=== PATIENT | female | born 1945 | race Two or more races ===

== ENCOUNTER 2018-03-05 09:39 | Inpatient (IN) | payer MEDICARE, MEDICAID ==
[~2018-03-05] VITALS: Ht 157.5 cm; Wt 81.7 kg
[~2018-03-05 09:39] MED LIST: ACET-53 PO; ALBU8.5H8 INH; BENA10TA9 PO; BENZ1TAB7 PO; DOCU-270 PO; GEMF600T PO; GUAI-671 PO; HYDR-3974 PO; LEVO112T5 PO; LORA10TA7 PO; METF500T6 PO; METO50TA16 PO; MULT-39 PO; ONDA4TAB11 PO
[2018-03-05] MEDS ORDERED: ACETAMINOPHEN 325 MG TABLET PO PRN (11:30)
[2018-03-05] MEDS ORDERED: MAGNESIUM HYDROXIDE 30 ML UDC PO PRN (11:30)
[2018-03-05] MEDS ORDERED: LORAZEPAM 0.5 MG TABLET PO PRN (11:30)
[2018-03-05] MEDS ORDERED: MAG HYDROX/AL HYDROX/SIMETH 30 ML UDC PO PRN (11:30)
[2018-03-05 11:35] VITALS: BP 138/90
--- NOTE | 2018-03-05 11:35 | NUR ---
ADMISSION NOTES PATIENT DIRECT ADMIT FROM URGENT CARE PSYCH EVALUATION. PATIENT DX OF SI, PLAN TO SELF HARM. PATIENT HAS PRIOR DX OF SCHIZOPHRENIA, SCHIZOAFFECTIVE D/O WITH PRIOR MEDICATION. PATIENT A/O X3, VERBALLY ABUSIVE, UNKEMPT, YELLING, IRRITABLE. ON FACE TO FACE ASSESSMENT PATIENT REFUSED SI/HI AT THIS TIME OF ADMISSION. V/S TAKEN BP-138/90, P-79, R-20, O2- 99 ROOM AIR, T-98.9. SKIN ASSESSMENT DONE, PICTURE TAKEN. PATIENT AMBULATORY, SELF CARE, USING BATHROOM. NEEDS ATTENDED AND ANTICIPATED. DR RIVERA, AND ANDRW DNP AWARE OF NEW PATIENT AND MEDICATION. CONTINUED MONITORING.
[2018-03-05] MEDS ORDERED: ESCI10TA PO (12:13)
[2018-03-05] MEDS ORDERED: LEVO75TA7 PO (12:13)
[2018-03-05] MEDS ORDERED: QUET300T2 PO (12:13)
[2018-03-05] MEDS ORDERED: ATOR40TA PO (12:13)
[2018-03-05] MEDS ORDERED: PANT40TA2 PO (12:13)
[2018-03-05] MEDS ORDERED: LABE200T5 PO (12:13)
[2018-03-05] MEDS ORDERED: GLIP5TAB13 PO (12:13)
[2018-03-05] MEDS: DIVALPROEX SODIUM 250 MG TABLET.DR PO SCH ×2 (13:48→22:39)
[2018-03-05] MEDS: OLANZAPINE 2.5 MG TABLET PO SCH ×2 (13:48→17:04)
--- NOTE | 2018-03-05 13:48 | NUR ---
RN NOTES ADMINISTERED ATIVAN 0.5 MG PO PRN FOR ANXIETY, YELLING, IRRITABLE. V/S TAKEN BP- 138/90, P-80. CONTINUED MONITORING. ALSO ADMINISTERED SCHEDULED MEDICATION.
[2018-03-05 16:00] VITALS: BP 152/81
[2018-03-05] MEDS ORDERED: IPRATROPIUM NEB FS 0.5 MG/2.5 ML AMPUL.NEB NEB PRN (19:00)
[2018-03-05] MEDS ORDERED: DEXTROSE 50%-WATER 50 ML DISP.SYRIN IV PRN (19:00)
[2018-03-05] MEDS ORDERED: ONDANSETRON 4 MG TAB.RAPDIS PO PRN (19:00)
[2018-03-05] MEDS ORDERED: LORATADINE 10 MG TABLET PO PRN (19:00)
[2018-03-05 19:30] VITALS: BP 153/91
[2018-03-05] MEDS: ALBUTEROL FS 2.5 MG/3 ML VIAL.NEB NEB PRN (22:21)
[2018-03-05] MEDS: BLOOD SUGAR DIAGNOSTIC 1 EACH STRIP IN SCH (22:40)
[2018-03-05] MEDS: QUETIAPINE FUMARATE 100 MG TABLET PO SCH (22:40)
[2018-03-05] MEDS: TEMAZEPAM 7.5 MG CAPSULE PO PRN (22:40)
[2018-03-05] MEDS: LABETALOL HCL (100MG) 100 MG TABLET PO SCH (22:40)
[2018-03-05] MEDS: INSULIN GLARGINE, 100 UNIT/ML CARTRIDGE SQ SCH (22:41)
[2018-03-05] MEDS: INSULIN REGULAR, HUMAN 100 UNIT/ML 3 ML VIAL SQ PRN (22:42)
[2018-03-06] MEDS: BLOOD SUGAR DIAGNOSTIC 1 EACH STRIP IN SCH ×4 (07:48→22:01)
[2018-03-06 08:00] VITALS: BP 143/99
[2018-03-06 08:02] LABS: CHOLESTEROL 253 mg/dL (<200); HDL CHOLESTEROL 37 mg/dL (40-60); LDL 145 mg/dL (0-99); TRIGLYCERIDES 385 mg/dL (30-150)
[2018-03-06 08:05] LABS: ALANINE AMINOTRANSFERASE 29 U/L (12-78); ALKALINE PHOSPHATASE 116 U/L (46-116); ASPARTATE AMINOTRANSFERASE 18 U/L (15-37); BILIRUBIN,TOTAL 0.2 mg/dL (0.2-1.0); CARBON DIOXIDE 24 mmol/L (21-32); CHLORIDE 103 mmol/L (98-107); CREATININE 1.1 mg/dL (0.6-1.3); GLUCOSE 181 mg/dL (74-106); POTASSIUM 4.1 mmol/L (3.5-5.1); SODIUM SERUM 138 mmol/L (136-145); TOTAL PROTEIN, SERUM 6.6 g/dL (6.4-8.2); UREA NITROGEN, BLOOD 26 mg/dL (7-18)
[2018-03-06] MEDS: INSULIN REGULAR, HUMAN 100 UNIT/ML 3 ML VIAL SQ PRN ×3 (08:44→22:03)
[2018-03-06] MEDS: OLANZAPINE 2.5 MG TABLET PO SCH ×3 (08:47→16:27)
[2018-03-06] MEDS: DIVALPROEX SODIUM 250 MG TABLET.DR PO SCH ×2 (08:47→21:53)
[2018-03-06] MEDS: MULTIVITAMINS,THERAGRAN 1 UDTAB TABLET PO SCH (08:47)
[2018-03-06] MEDS: LEVOTHYROXINE SODIUM 75 MCG TABLET PO SCH (08:47)
[2018-03-06] MEDS: ATORVASTATIN 40 MG TABLET PO SCH (08:47)
[2018-03-06] MEDS: PANTOPRAZOLE 40 MG TABLET.DR PO SCH (08:47)
[2018-03-06] MEDS: NICOTINE PATCH (14MG) 14 MG PATCH.TD24 TD SCH (08:49)
[2018-03-06] MEDS: LABETALOL HCL (100MG) 100 MG TABLET PO SCH ×2 (08:49→21:54)
--- NOTE | 2018-03-06 17:28 | NUR ---
ACCUCHECK 131. PATIENT REFUSED INSULIN. OFFERED 3X.
[2018-03-06 19:30] VITALS: BP 152/73
[2018-03-06] MEDS: TEMAZEPAM 7.5 MG CAPSULE PO PRN (21:54)
[2018-03-06] MEDS: QUETIAPINE FUMARATE 100 MG TABLET PO SCH (21:54)
[2018-03-06] MEDS: INSULIN GLARGINE, 100 UNIT/ML CARTRIDGE SQ SCH (22:02)
[2018-03-07 08:00] VITALS: BP 117/76
[2018-03-07] MEDS: LEVOTHYROXINE SODIUM 75 MCG TABLET PO SCH (08:00)
[2018-03-07] MEDS: NICOTINE PATCH (14MG) 14 MG PATCH.TD24 TD SCH (08:00)
[2018-03-07] MEDS: DIVALPROEX SODIUM 250 MG TABLET.DR PO SCH ×2 (08:00→21:08)
[2018-03-07] MEDS: ATORVASTATIN 40 MG TABLET PO SCH (08:00)
[2018-03-07] MEDS: PANTOPRAZOLE 40 MG TABLET.DR PO SCH (08:00)
[2018-03-07] MEDS: MULTIVITAMINS,THERAGRAN 1 UDTAB TABLET PO SCH (08:00)
[2018-03-07] MEDS: OLANZAPINE 2.5 MG TABLET PO SCH ×3 (08:00→16:09)
[2018-03-07] MEDS: LABETALOL HCL (100MG) 100 MG TABLET PO SCH ×2 (08:01→21:08)
[2018-03-07] MEDS: BLOOD SUGAR DIAGNOSTIC 1 EACH STRIP IN SCH ×5 (08:09→22:34)
[2018-03-07] MEDS: INSULIN REGULAR, HUMAN 100 UNIT/ML 3 ML VIAL SQ PRN ×4 (08:13→22:36)
[2018-03-07 16:10] VITALS: BP 179/94
[2018-03-07 18:05] VITALS: BP 138/86
[2018-03-07 19:48] VITALS: BP 139/62
[2018-03-07] MEDS: ALBUTEROL FS 2.5 MG/3 ML VIAL.NEB NEB PRN (20:31)
[2018-03-07] MEDS: DIVALPROEX SODIUM 500 MG TABLET.DR PO SCH (21:08)
--- NOTE | 2018-03-07 21:15 | NUR ---
GPS-RN PATIENT REFUSED SKIN BODY ASSESSMENT SHE STATED, I'M DONE WITH IT WHEN I CAME. EXPLAINED TO PATIENT THAT WE DO IT WEEKLY. BUT PATIENT STRONGLY REFUSED.
[2018-03-07] MEDS: TEMAZEPAM 7.5 MG CAPSULE PO PRN (21:49)
--- NOTE | 2018-03-07 21:49 | NUR ---
GPS-RN PATIENT C/O UNABLE TO STAY ASLEEP. VSS. ADMINISTERED RESTORIL 7.5MG PO ORDERED PER PT'S REQUEST. WILL CONTINUE TO MONITOR.
[2018-03-07] MEDS: INSULIN GLARGINE, 100 UNIT/ML CARTRIDGE SQ SCH ×2 (21:52→22:38)
--- NOTE | 2018-03-07 21:52 | NUR ---
GPS-RN PATIENT REFUSED ACCU CHECK SCHEDULED, OFFERED X3, PATIENT STILL REFUSED. WHILE EXPLAINING TO PT. THE RISKS AND BENEFITS PATIENT IS VERBALLY ABUSIVE, USING PROFANITY LANGUAGES. PATIENT NEEDS CONSTANT REDIRECTION. WILL CONTINUE TO MONITOR Q15MIN ROUNDS FOR SAFETY AND BEHAVIOR.
--- NOTE | 2018-03-07 22:34 | NUR ---
GPS-RN PATIENT AGREED TO HAVE HER BLOOD SUGAR CHECK.
[2018-03-08 08:00] VITALS: BP 152/77
[2018-03-08] MEDS: BLOOD SUGAR DIAGNOSTIC 1 EACH STRIP IN SCH ×4 (08:07→21:44)
[2018-03-08] MEDS: ATORVASTATIN 40 MG TABLET PO SCH (08:08)
[2018-03-08] MEDS: MULTIVITAMINS,THERAGRAN 1 UDTAB TABLET PO SCH (08:08)
[2018-03-08] MEDS: OLANZAPINE 2.5 MG TABLET PO SCH ×3 (08:08→16:21)
[2018-03-08] MEDS: PANTOPRAZOLE 40 MG TABLET.DR PO SCH (08:09)
[2018-03-08] MEDS: DIVALPROEX SODIUM 250 MG TABLET.DR PO SCH ×2 (08:09→21:50)
[2018-03-08] MEDS: NICOTINE PATCH (14MG) 14 MG PATCH.TD24 TD SCH (08:09)
[2018-03-08] MEDS: DIVALPROEX SODIUM 500 MG TABLET.DR PO SCH ×2 (08:09→21:50)
--- NOTE | 2018-03-08 08:39 | NUR ---
WOUND CARE CONSULT WOUND CARE RECEIVED CONSULT FOR RASHES. WOUND CARE WILL DEFER TO MD. PATIENT WITH [place]IV[place] AT 22. SPOKE TO HAND PACKER TO HAVE MD EVALUATE RASHES. WILL SEE PRN.
[2018-03-08] MEDS: LEVOTHYROXINE SODIUM 75 MCG TABLET PO SCH (08:42)
[2018-03-08] MEDS: LABETALOL HCL (100MG) 100 MG TABLET PO SCH ×2 (08:43→21:51)
[2018-03-08] MEDS: INSULIN REGULAR, HUMAN 100 UNIT/ML 3 ML VIAL SQ PRN ×3 (12:27→21:47)
--- NOTE | 2018-03-08 15:46 | NUR ---
Initial Discharge Plan: Pt came from the [facility] located at [address] [place] [address]. Per pt, she would [facility]. SW spoke to the psychiatrist and it was decided that the pt would return there tomorrow. SW will form a safe and proper discharge.
[2018-03-08 16:00] VITALS: BP 151/104
--- NOTE | 2018-03-08 19:30 | NUR ---
GPS RN NOTE, RECEIVED PATIENT AWAKE AND IN BED, NO S/S OR COMPLAINTS OF PAIN AT THIS TIME. PATIENT IS DISPLAYING NO S/S OF APPARENT DISTRESS AT THIS TIME. PATIENT BREATHING IS UNLABORED WITH EQUAL RISE AND FALL CHEST. PATIENT IS ALERT AND ORIENTED X 2 ON ROOM AIR WITH A SPO2 94%. PATIENT IS IRRITABLE, DISORGANIZED, COOPERATIVE, ANXIOUS AT TIMES, AND NEEDS REDIRECTION. PATIENT DENIES SUICIDE IDEATIONS AND HOMICIDAL IDEATIONS AT THIS TIME. PATIENT EDUCATED ON THE USE OF THE CALL LEE. PATIENT BED SIDE RAILS UP X 2 FOR SAFETY, BED IS LOCKED AND LOW, WILL CONTINUE TO MONITOR AND MAINTAIN SAFETY WITH THE HELP OF SAFE.
[2018-03-08 19:56] VITALS: BP 136/67
--- NOTE | 2018-03-08 21:44 | NUR ---
GPS RN NOTE, PERFORMED ACCU CHECK ON PATIENT WITH A BLOOD SUGAR RESULT OF 217. GAVE 4 UNITS OF REGULAR INSULIN PER SLIDING SCALE. ALSO GAVE 20 UNITS OF LANTUS ORDERED. WILL CONTINUE TO MONITOR THIS PATIENT.
[2018-03-08] MEDS: INSULIN GLARGINE, 100 UNIT/ML CARTRIDGE SQ SCH (21:48)
[2018-03-09 08:00] VITALS: BP 174/94
[2018-03-09] MEDS: BLOOD SUGAR DIAGNOSTIC 1 EACH STRIP IN SCH ×4 (08:20→21:39)
[2018-03-09] MEDS: INSULIN REGULAR, HUMAN 100 UNIT/ML 3 ML VIAL SQ PRN ×4 (08:23→21:56)
[2018-03-09] MEDS: MULTIVITAMINS,THERAGRAN 1 UDTAB TABLET PO SCH (08:25)
[2018-03-09] MEDS: ATORVASTATIN 40 MG TABLET PO SCH (08:25)
[2018-03-09] MEDS: DIVALPROEX SODIUM 250 MG TABLET.DR PO SCH ×2 (08:25→21:36)
[2018-03-09] MEDS: DIVALPROEX SODIUM 500 MG TABLET.DR PO SCH ×2 (08:25→21:36)
[2018-03-09] MEDS: LABETALOL HCL (100MG) 100 MG TABLET PO SCH ×2 (08:25→21:37)
[2018-03-09] MEDS: OLANZAPINE 2.5 MG TABLET PO SCH ×3 (08:25→17:33)
[2018-03-09] MEDS: PANTOPRAZOLE 40 MG TABLET.DR PO SCH (08:30)
[2018-03-09] MEDS: LEVOTHYROXINE SODIUM 75 MCG TABLET PO SCH (08:30)
[2018-03-09] MEDS: NICOTINE PATCH (14MG) 14 MG PATCH.TD24 TD SCH (08:31)
[2018-03-09 15:12] LABS: CARBON DIOXIDE 28 mmol/L (21-32); CHLORIDE 104 mmol/L (98-107); CREATININE 1.2 mg/dL (0.6-1.3); GLUCOSE 270 mg/dL (74-106); MAGNESIUM 1.6 mg/dL (1.8-2.4); POTASSIUM 4.6 mmol/L (3.5-5.1); SODIUM SERUM 141 mmol/L (136-145); UREA NITROGEN, BLOOD 21 mg/dL (7-18)
[2018-03-09 16:00] VITALS: BP 162/90
--- NOTE | 2018-03-09 18:22 | NUR ---
GPS RN NOTE: DR ALEMAN NOTIFIED OF PT LABS MAG 1.6 T.O. ORDER FOR MAG OXIDE 800 MG PO ONCE ORDER PLACED AND CARED OUT WILL CONTINUE MONITORING.
[2018-03-09] MEDS ORDERED: MAGNESIUM OXIDE 400 MG TABLET PO ONE (19:30)
[2018-03-09 20:37] VITALS: BP 168/93
[2018-03-09] MEDS: TEMAZEPAM 7.5 MG CAPSULE PO PRN (21:42)
[2018-03-09] MEDS: INSULIN GLARGINE, 100 UNIT/ML CARTRIDGE SQ SCH (21:57)
[2018-03-10] MEDS: BLOOD SUGAR DIAGNOSTIC 1 EACH STRIP IN SCH ×2 (07:30→12:14)
[2018-03-10 08:00] VITALS: BP 154/90
[2018-03-10] MEDS: MULTIVITAMINS,THERAGRAN 1 UDTAB TABLET PO SCH (08:54)
[2018-03-10 08:55] VITALS: BP 154/90
[2018-03-10] MEDS: LABETALOL HCL (100MG) 100 MG TABLET PO SCH (08:55)
[2018-03-10] MEDS: DIVALPROEX SODIUM 500 MG TABLET.DR PO SCH (08:55)
[2018-03-10] MEDS: DIVALPROEX SODIUM 250 MG TABLET.DR PO SCH (08:56)
[2018-03-10] MEDS: OLANZAPINE 2.5 MG TABLET PO SCH (08:56)
[2018-03-10] MEDS: LEVOTHYROXINE SODIUM 75 MCG TABLET PO SCH (08:56)
[2018-03-10] MEDS: ATORVASTATIN 40 MG TABLET PO SCH (08:56)
[2018-03-10] MEDS: PANTOPRAZOLE 40 MG TABLET.DR PO SCH (08:56)
[2018-03-10] MEDS: NICOTINE PATCH (14MG) 14 MG PATCH.TD24 TD SCH (08:59)
[2018-03-10] MEDS: INSULIN REGULAR, HUMAN 100 UNIT/ML 3 ML VIAL SQ PRN ×2 (09:15→12:15)
--- NOTE | 2018-03-10 13:00 | NUR ---
Patient alert and oriented x3, in no distress calm and cooperative. Denies any suicidal ideation or plan, or homicidal ideation or plan. Denies any auditory or visual hallucinations. Ambulatory. Patient is ordered to be discharged back to [facility] today. Patient provided medication prescriptions, education materials, and discharge instructions. Patient verbalized understanding. Will be picked up by taxi, arranged by Shannen Supervisor Color Making. Shannen social professionals, provided patient with clothing, shirt and shorts. Patient content. Belongings reconciled. Walked patient out of unit down to lobby without any difficulty, and directed her to taxi, who was waiting out in front.
--- NOTE | 2018-03-10 13:04 | NUR ---
SW called [facility] ([phone]) and ensured that the pt can return.
--- NOTE | 2018-03-10 13:18 | NUR ---
Discharge Note: Pt was discharged to [facility] located at [address] [place] [address]; ([phone]). Pt was transported via taxi at 1PM. There was no one to contact about this placement because the pt was unable to provide phone numbers. Upon discharge, the pt had home health ordered and was given three substance use referrals. Pt appeared to be in a euthymic mood with an excited and anxious affect. Pt denied having any hallucinations and also denied both suicidal and homicidal ideation. Pt was referred to be under the care of psychiatrist, Dr. Sofiya Melton, located at [address], [address] [address]; ([phone]) and referred to an peoplesoft crm developer, Dr. Chandana Hill, located at [address] [place] [address]; ([phone]). Referrals: [facility] [address] [place] [address] Tel. [facility] [address] [place] Provider Mental Health Treatment Tele-dermatology HIV Services Telemedicine Services [facility] [address] [place] [address] [facility] [address] [place] [address]
--- NOTE | 2018-03-10 13:37 | NUR ---
BANDAR faxed a home health referral to [facility] ([phone]) to their fax number of [phone].
== END 2018-03-10 13:00 | disposition home health service (06) | DRG 885 ==
LOC: GPS 11:16
PROVIDERS: ADMIT Psychiatry & Neurology Psychosomatic Medicine; ATTEND Hospitalist
DX: F25.0 Schizoaffective disorder, bipolar type (principal); E78.5 Hyperlipidemia, unspecified; E66.9 Obesity, unspecified; E11.9 Type 2 diabetes mellitus without complications; E03.9 Hypothyroidism, unspecified; Z79.4 Long term (current) use of insulin; I10 Essential (primary) hypertension; Z59.0 Homelessness; Z68.32 Body mass index [BMI] 32.0-32.9, adult; F19.10 Other psychoactive substance abuse, uncomplicated; I70.90 Unspecified atherosclerosis
CPT/HCPCS: 36415; 80048-TC; 80053-TC; 80061-TC; 80164-TC; 82962-TC; 83735-TC; J1815

== ENCOUNTER 2018-05-01 22:45 | Inpatient (IN) | payer MEDICARE, MEDICAID ==
[~2018-05-01] VITALS: Ht 157.5 cm; Wt 81.6 kg
[~2018-05-01 22:45] MED LIST changes: -ACET-53 PO; +ATOR40TA PO; -BENA10TA9 PO; -BENZ1TAB7 PO; -DOCU-270 PO; +ESCI10TA PO; -GEMF600T PO; +GLIP5TAB13 PO; -GUAI-671 PO; +LABE200T5 PO; -LEVO112T5 PO; +LEVO75TA7 PO; +METF-440 PO; -METF500T6 PO; -METO50TA16 PO; +PANT40TA2 PO; +QUET300T2 PO
--- NOTE | 2018-05-01 22:48 | NUR ---
PT TO ER BED 1. BB [employer] FOR MEDICAL CLEARANCE AND ADM TO [facility]. PT ON 5150 FOR SUICIDAL IDEATION. PT PLACED IN GOWN AND ON PRODUCTION TESTER. VSS/RESP EVEN UNLABORED/NAD NOTED/SKIN WARM AND DRY/AFEBRILE/DENIES N-V-D/AOX4. AWAITNG MD COLLINS.
--- NOTE | 2018-05-01 23:20 | NUR ---
LAB AT BEDSIDE FOR DRAW.
[2018-05-01 23:45] LABS: BASOPHILS # (AUTO) 0.1 /CMM (0.0-0.2); BASOPHILS % (AUTO) 0.8 % (0.0-2.0); EOSINOPHILS % (AUTO) 3.3 % (0.0-6.0); HEMATOCRIT 36 % (33-45); HEMOGLOBIN 11.6 g/dL (11.5-14.8); LYMPHOCYTES # (AUTO) 4.2 /CMM (0.8-4.8); LYMPHOCYTES % (AUTO) 37.3 % (20.0-44.0); MEAN CORPUSCULAR HGB CONC 32 g/dl (31.0-36.0); MEAN CORPUSCULAR VOLUME 90 fL (82-100); MONOCYTES # (AUTO) 0.8 /CMM (0.1-1.30); NEUTROPHILS # (AUTO) 5.8 /CMM (1.8-8.9); NEUTROPHILS % (AUTO) 51.6 % (43.0-81.0); PLATELET COUNT (AUTO) 318 /CMM (150-450); RDW COEFFICIENT OF VARIATION 13.9 (11.5-15.0); RED BLOOD CELL COUNT(AUTO) 4.02 MIL/uL (4.0-5.2); WHITE BLOOD COUNT (AUTO) 11.3 K/uL (4.3-11.0)
[2018-05-01 23:52] LABS: APPEARANCE,URINE CLEAR (CLEAR); BILIRUBIN,URINE NEGATIVE (NEGATIVE); BLOOD, URINE TRACE-INTA Ery/uL (NEGATIVE); COLOR,URINE YELLOW (YELLOW); KETONES,URINE NEGATIVE (NEGATIVE); LEUKOCYTE ESTERASE ,URINE NEGATIVE (NEGATIVE); NITRITE, URINE NEGATIVE (NEGATIVE); PH,URINE 5.5 (5.0-8.0); PROTEIN,URINE 2+ mg/dl (NEGATIVE); UGLUCOSE NEGATIVE (NEGATIVE); UROBILINOGEN,URINE 0.2 EU/dL (0.2)
--- NOTE | 2018-05-02 | NUR ---
REPORT GIVEN TO KYRIE WEATHERS FOR MELONY. URINE DRUG SCREEN ENDORSED TO BRUCE.
[2018-05-02 00:01] LABS: ALANINE AMINOTRANSFERASE 19 U/L (12-78); ALBUMIN 3.7 g/dL (3.4-5.0); ALKALINE PHOSPHATASE 111 U/L (46-116); ASPARTATE AMINOTRANSFERASE 16 U/L (15-37); BILIRUBIN,DIRECT 0.1 mg/dL (0.0-0.2); BILIRUBIN,TOTAL 0.2 mg/dL (0.2-1.0); CALCIUM, SERUM 9.2 mg/dL (8.5-10.1); CARBON DIOXIDE 26 mmol/L (21-32); CHLORIDE 105 mmol/L (98-107); CREATININE 1.1 mg/dL (0.6-1.3); GLUCOSE 110 mg/dL (74-106); POTASSIUM 4.3 mmol/L (3.5-5.1); SALICYLATE 5.6 mg/dL (2.8-20.0); SODIUM SERUM 140 mmol/L (136-145); TOTAL PROTEIN, SERUM 7.4 g/dL (6.4-8.2); UREA NITROGEN, BLOOD 31 mg/dL (7-18)
[2018-05-02 00:09] LABS: ACETAMINOPHEN 0 ug/ml (10-30)
[2018-05-02 00:10] LABS: ALCOHOL, BLOOD < 3 mg/dL (0-0)
[2018-05-02 00:19] LABS: BACTERIA,URINE None seen /HPF (None Seen); RBC,URINE 0-2 /HPF (0-2); SQUAMOUS EPITHELIAL CELL,UR Few /HPF (None Seen); WBC,URINE 0-2 /HPF (0-3)
--- NOTE | 2018-05-02 01:06 | NUR ---
PT TO [facility] 211.2 VIA WHEELCHAIR WITH EMT. VSS.
--- NOTE | 2018-05-02 01:20 | NUR ---
Admitted a 73 year old female from [facility] who was placed on a 5150 hold as DTS with admitting Dx. of depression and medical dx. of diabetes, hypertension and COPD. Hx. of cataract surgery. Upon face to face evaluation, patient appeared alert and oriented x 4, calm, cooperative, appeared depressed, admitted suicidal ideation with plan to run into traffic, admitted hearing voices telling her to hurt herself. Patient is ambulatory with steady gait. No sob, no acute distress, breathing even and unlabored, no s/s of pain and discomfort. Refused body check. Patient stated "I don't have anything". Picture done. Paper works sign by the patient. Belongings inspected for contraband checking. Unit policies explained to the patient. Patient is under the care of Dr. Tineo. Notified Dr. Tineo and Dr. Biggs of the admission and for med recon. kept clean, dry and comfortable. Will continue to monitor [id number] for safety.
[2018-05-02] MEDS ORDERED: ACETAMINOPHEN 325 MG TABLET PO PRN (01:30)
[2018-05-02] MEDS ORDERED: TEMAZEPAM 7.5 MG CAPSULE PO PRN (01:30)
[2018-05-02] MEDS ORDERED: MAGNESIUM HYDROXIDE 30 ML UDC PO PRN (01:30)
[2018-05-02] MEDS ORDERED: MAG HYDROX/AL HYDROX/SIMETH 30 ML UDC PO PRN (01:30)
[2018-05-02 01:44] VITALS: BP 156/78
[2018-05-02] MEDS ORDERED: HYDROCODONE/APAP 5/325MG 1 EACH TABLET PO PRN (02:00)
[2018-05-02] MEDS ORDERED: ALBUTEROL SULFATE 8 GM HFA.AER.AD IH PRN (02:00)
[2018-05-02] MEDS ORDERED: hydrALAZINE HCL 25 MG TABLET PO PRN (02:30)
[2018-05-02] MEDS ORDERED: DEXTROSE 50%-WATER 50 ML DISP.SYRIN IV PRN (02:30)
[2018-05-02] MEDS: BLOOD SUGAR DIAGNOSTIC 1 EACH STRIP IN SCH ×4 (07:30→21:21)
[2018-05-02 08:00] VITALS: BP 152/89
[2018-05-02] MEDS ORDERED: ALBUTEROL FS 2.5 MG/3 ML VIAL.NEB NEB PRN (08:30)
--- NOTE | 2018-05-02 09:31 | NUR ---
PT refused at 0900 HRS.
[2018-05-02] MEDS ORDERED: ESCITALOPRAM OXALATE (10 MG) 10 MG TABLET PO SCH (11:30)
[2018-05-02] MEDS: MULTIVITAMINS,THERAGRAN 1 UDTAB TABLET PO SCH (11:46)
[2018-05-02] MEDS: LEVOTHYROXINE SODIUM 75 MCG TABLET PO SCH (11:46)
[2018-05-02] MEDS: NICOTINE PATCH (14MG) 14 MG PATCH.TD24 TD SCH (11:46)
[2018-05-02] MEDS: METFORMIN 500 MG TABLET PO SCH ×2 (11:47→17:04)
[2018-05-02] MEDS: LISINOPRIL (10MG) 10 MG TABLET PO SCH (11:47)
[2018-05-02] MEDS: PANTOPRAZOLE 40 MG TABLET.DR PO SCH (11:47)
[2018-05-02] MEDS: glipiZIDE 5 MG TABLET PO SCH ×2 (11:48→17:04)
[2018-05-02] MEDS: METOPROLOL TARTRATE 50 MG TABLET PO SCH ×2 (11:49→21:20)
--- NOTE | 2018-05-02 12:43 | NUR ---
GPS/RN accucheck with BS 134. pt refused insulin coverage.
--- NOTE | 2018-05-02 14:30 | NUR ---
GPS/RN PT REFUSED TO LET RT TO TAKE ECG. OFFERED X3. RT ADVISED TO DO ECG LATER TODAY BEFORE THE END OF THE SHIFT
[2018-05-02 16:00] VITALS: BP 150/79
--- NOTE | 2018-05-02 18:06 | NUR ---
RT PT REFUSED EKG X3 KYRIE SANTIAGO
--- NOTE | 2018-05-02 19:01 | NUR ---
GPS/RN ECG DONE. PER PHARMACY IT IS BORDERLINE AND DR JOSE NOT CALLING BACK. ENDORSED TO WENDY MITTAL TO CONTACT DR JOSE FOR CLARIFICATION ON SEROQUEL ADMINISTRATION.
--- NOTE | 2018-05-02 19:57 | NUR ---
GPS RN NOTES: DR. JOSE CALL BACK WITH NEW ORDERS CONTINUE WITH SEROQUEL ,STOP LEXAPRO , ECG FOR TOMORROW , NEW ORDES RECEIVED AND CARRIED OUT.
[2018-05-02 20:11] VITALS: BP 148/71
[2018-05-02] MEDS: LORAZEPAM 0.5 MG TABLET PO PRN (20:11)
[2018-05-02] MEDS: ATORVASTATIN 40 MG TABLET PO SCH (21:20)
[2018-05-02] MEDS ORDERED: QUETIAPINE FUMARATE 100 MG TABLET PO SCH (22:00)
[2018-05-03] MEDS: BLOOD SUGAR DIAGNOSTIC 1 EACH STRIP IN SCH ×4 (07:28→22:06)
[2018-05-03 08:00] VITALS: BP 141/59
[2018-05-03] MEDS: NICOTINE PATCH (14MG) 14 MG PATCH.TD24 TD SCH (09:03)
[2018-05-03] MEDS: METOPROLOL TARTRATE 50 MG TABLET PO SCH ×2 (09:04→20:48)
[2018-05-03] MEDS: PANTOPRAZOLE 40 MG TABLET.DR PO SCH (09:04)
[2018-05-03] MEDS: LISINOPRIL (10MG) 10 MG TABLET PO SCH (09:04)
[2018-05-03] MEDS: LEVOTHYROXINE SODIUM 75 MCG TABLET PO SCH (09:04)
[2018-05-03] MEDS: glipiZIDE 5 MG TABLET PO SCH ×2 (09:04→16:46)
[2018-05-03] MEDS: MULTIVITAMINS,THERAGRAN 1 UDTAB TABLET PO SCH (09:04)
[2018-05-03] MEDS: METFORMIN 500 MG TABLET PO SCH ×3 (09:54→17:00)
--- NOTE | 2018-05-03 15:43 | NUR ---
BANDAR called Gilmar ([phone]) and was unable to leave a message.
[2018-05-03 16:00] VITALS: BP 145/59
--- NOTE | 2018-05-03 16:00 | NUR ---
SW called [facility] ([phone]) and was unable to contact anyone.
--- NOTE | 2018-05-03 16:01 | NUR ---
Initial Discharge Plan: Pt currently resides at [facility] located at [address] [place] [address]; ([phone]). Per pt, she would like to return here. BANDAR was unable to contact both the prison and the pt's friend, Gilmar Marie ([phone]), to discuss this option. BANDAR will work with the pt and the MD regarding appropriate discharge planning. BANDAR will form a safe and proper discharge.
[2018-05-03] MEDS: OLANZAPINE 2.5 MG TABLET PO SCH (16:46)
--- NOTE | 2018-05-03 19:30 | NUR ---
RN NOTES SEEN AMBULATING AROUND HALLWAYS, NO NEEDS MADE. BACK TO ROOM, DENIES ANY DISCOMFORTS.
[2018-05-03 20:35] VITALS: BP 123/65
--- NOTE | 2018-05-03 21:30 | NUR ---
RN NOTES WANTED SNACKS , AGREED TO HAVE HER BLOOD SUGAR CHECKED. WAS 167, SNACKS PROVIDED. ATE WELL.
[2018-05-03] MEDS: ATORVASTATIN 40 MG TABLET PO SCH (21:56)
[2018-05-03] MEDS ORDERED: MIRTAZAPINE 15 MG TABLET PO SCH (22:00)
[2018-05-03] MEDS: INSULIN REGULAR, HUMAN 100 UNIT/ML 3 ML VIAL SQ PRN (22:03)
--- NOTE | 2018-05-03 22:30 | NUR ---
RN NOTES TOOK TIME TO AGREE FOR INSULIN AND PO MEDS. NEEDS FURTHER EXPLANATION AND MOTIVATION.
--- NOTE | 2018-05-03 23:11 | NUR ---
RN NOTES SLEEPING OF THIS TIME, FREQUENT CHECK, CLOSER OBSERVATION.
--- NOTE | 2018-05-04 06:47 | NUR ---
RN NOTES. SLEPT WELL THROUGHOUT THE NIGHT. AGREED BLOOD DRAW.
[2018-05-04 07:31] LABS: CARBON DIOXIDE 26 mmol/L (21-32); CHLORIDE 105 mmol/L (98-107); GLUCOSE 158 mg/dL (74-106); POTASSIUM 4.7 mmol/L (3.5-5.1); SODIUM SERUM 139 mmol/L (136-145); UREA NITROGEN, BLOOD 27 mg/dL (7-18)
[2018-05-04 07:39] LABS: BASOPHILS # (AUTO) 0.1 /CMM (0.0-0.2); EOSINOPHILS % (AUTO) 4.2 % (0.0-6.0); HEMATOCRIT 37 % (33-45); HEMOGLOBIN 12.7 g/dL (11.5-14.8); LYMPHOCYTES % (AUTO) 32.2 % (20.0-44.0); MEAN CORPUSCULAR HGB CONC 34 g/dl (31.0-36.0); MEAN CORPUSCULAR VOLUME 88 fL (82-100); MONOCYTES # (AUTO) 0.7 /CMM (0.1-1.30); MONOCYTES % (AUTO) 7.2 % (2.0-12.0); NEUTROPHILS % (AUTO) 55.4 % (43.0-81.0); PLATELET COUNT (AUTO) 272 /CMM (150-450); RDW COEFFICIENT OF VARIATION 13.1 (11.5-15.0); RED BLOOD CELL COUNT(AUTO) 4.24 MIL/uL (4.0-5.2); WHITE BLOOD COUNT (AUTO) 9.2 K/uL (4.3-11.0)
[2018-05-04 08:00] VITALS: BP 170/74
[2018-05-04] MEDS: INSULIN REGULAR, HUMAN 100 UNIT/ML 3 ML VIAL SQ PRN ×2 (08:00→22:06)
--- NOTE | 2018-05-04 08:00 | NUR ---
[id number]: BLOOD SUGAR IS 159 MG/DL AND GAVE 2 UNITS OF REGULAR INSULIN
[2018-05-04 08:03] LABS: CHOLESTEROL 220 mg/dL (<200); HDL CHOLESTEROL 38 mg/dL (40-60); LDL 129 mg/dL (0-99); TRIGLYCERIDES 315 mg/dL (30-150)
[2018-05-04] MEDS: METFORMIN 500 MG TABLET PO SCH ×2 (08:41→16:30)
[2018-05-04] MEDS: LORATADINE 10 MG TABLET PO PRN (08:41)
[2018-05-04] MEDS: MULTIVITAMINS,THERAGRAN 1 UDTAB TABLET PO SCH (08:41)
[2018-05-04] MEDS: glipiZIDE 5 MG TABLET PO SCH ×2 (08:41→16:29)
[2018-05-04] MEDS: PANTOPRAZOLE 40 MG TABLET.DR PO SCH (08:41)
[2018-05-04] MEDS: OLANZAPINE 2.5 MG TABLET PO SCH (08:41)
[2018-05-04] MEDS: LEVOTHYROXINE SODIUM 75 MCG TABLET PO SCH (08:42)
[2018-05-04] MEDS: METOPROLOL TARTRATE 50 MG TABLET PO SCH ×2 (08:43→21:58)
[2018-05-04] MEDS: LISINOPRIL (10MG) 10 MG TABLET PO SCH (08:43)
[2018-05-04] MEDS: BLOOD SUGAR DIAGNOSTIC 1 EACH STRIP IN SCH ×4 (08:45→22:03)
[2018-05-04] MEDS: NICOTINE PATCH (14MG) 14 MG PATCH.TD24 TD SCH (08:48)
--- NOTE | 2018-05-04 12:10 | NUR ---
[id number]: BLOOD SUGAR4 IS 129 MG/DL AND NO INSULIN REQUIRED AT THIS TIME
[2018-05-04 16:00] VITALS: BP 138/70
--- NOTE | 2018-05-04 16:00 | NUR ---
[id number]: BLOOD SUGAR IS 95 MG/DL AND NO INSULIN REQUIRED AT THIS TIME
--- NOTE | 2018-05-04 19:15 | NUR ---
RN NOTES Seen interacting in the dayroom. No complaints as of this time.
[2018-05-04 20:12] VITALS: BP 141/94
[2018-05-04] MEDS: ATORVASTATIN 40 MG TABLET PO SCH (22:00)
[2018-05-04] MEDS ORDERED: MIRTAZAPINE 15 MG TABLET PO SCH (22:00)
--- NOTE | 2018-05-04 22:07 | NUR ---
RN NOTES BSL checked, 136. 2 units of insulin given as per sliding scale
[2018-05-05] MEDS: BLOOD SUGAR DIAGNOSTIC 1 EACH STRIP IN SCH ×4 (07:30→22:43)
[2018-05-05 08:00] VITALS: BP 151/71
[2018-05-05] MEDS: NICOTINE PATCH (14MG) 14 MG PATCH.TD24 TD SCH (08:52)
[2018-05-05] MEDS: LEVOTHYROXINE SODIUM 75 MCG TABLET PO SCH (08:52)
[2018-05-05] MEDS: OLANZAPINE 2.5 MG TABLET PO SCH ×2 (08:52→16:47)
[2018-05-05] MEDS: LORATADINE 10 MG TABLET PO PRN (08:53)
[2018-05-05] MEDS: PANTOPRAZOLE 40 MG TABLET.DR PO SCH (08:53)
[2018-05-05] MEDS: glipiZIDE 5 MG TABLET PO SCH ×2 (08:53→16:48)
[2018-05-05] MEDS: LISINOPRIL (10MG) 10 MG TABLET PO SCH (08:53)
[2018-05-05] MEDS: METFORMIN 500 MG TABLET PO SCH ×2 (08:53→16:48)
[2018-05-05] MEDS: MULTIVITAMINS,THERAGRAN 1 UDTAB TABLET PO SCH (08:53)
[2018-05-05] MEDS: METOPROLOL TARTRATE 50 MG TABLET PO SCH ×2 (08:54→21:51)
[2018-05-05] MEDS: INSULIN REGULAR, HUMAN 100 UNIT/ML 3 ML VIAL SQ PRN ×4 (09:00→21:54)
--- NOTE | 2018-05-05 12:19 | NUR ---
BANDAR called Gilmar ([phone]), fresh meat grader of the halfway, who stated that it is called [facility]. He stated that the pt is welcome to return when she is cleared for discharge.
--- NOTE | 2018-05-05 15:22 | NUR ---
SW conducted a substance use intervention with the pt due to the psychiatrist stating that the pt has a history of using and that traces were found in the pt's labs.
[2018-05-05 16:47] VITALS: BP 149/72
--- NOTE | 2018-05-05 19:30 | NUR ---
RECEIVED PATIENT AMBULATING IN ROOM. AO X 3, ABLE TO MAKE NEEDS KNOWN. NO ACUTE DISTRESS NOTED. DENIES ANY PAIN AT THIS TIME. SAFETY REMINDERS GIVEN. ROOM HAS LOW BED WITH BILATERAL UPPER SIDE RAILS UP. CALL LEE WITHIN EASY REACH. WILL CONTINUE TO MONITOR.
[2018-05-05 19:53] VITALS: BP 144/62
[2018-05-05 20:00] VITALS: BP 144/62
[2018-05-05] MEDS: ATORVASTATIN 40 MG TABLET PO SCH (21:51)
--- NOTE | 2018-05-06 06:40 | NUR ---
PATIENT ASLEEP, EASILY AROUSABLE. RESPIRATIONS EVEN. DUE MEDS GIVEN WITH NO ASE NOTED. NO SYMPTOMS OF HYPER/HYPOGLYCEMIA. PATIENT SLEPT WELL. NEEDS ATTENDED. SAFETY PRECAUTIONS AND COMFORT MEASURES IN PLACE. WILL GIVE REPORT TO DAY SHIFT FOR CONTINUITY OF CARE.
[2018-05-06] MEDS: BLOOD SUGAR DIAGNOSTIC 1 EACH STRIP IN SCH ×4 (07:53→21:43)
[2018-05-06 08:00] VITALS: BP 133/79
[2018-05-06] MEDS: INSULIN REGULAR, HUMAN 100 UNIT/ML 3 ML VIAL SQ PRN (08:10)
[2018-05-06] MEDS: glipiZIDE 5 MG TABLET PO SCH ×2 (08:52→16:13)
[2018-05-06] MEDS: PANTOPRAZOLE 40 MG TABLET.DR PO SCH (08:52)
[2018-05-06] MEDS: OLANZAPINE 2.5 MG TABLET PO SCH (08:52)
[2018-05-06] MEDS: MULTIVITAMINS,THERAGRAN 1 UDTAB TABLET PO SCH (08:52)
[2018-05-06] MEDS: LEVOTHYROXINE SODIUM 75 MCG TABLET PO SCH (08:52)
[2018-05-06] MEDS: METOPROLOL TARTRATE 50 MG TABLET PO SCH ×2 (08:54→21:41)
[2018-05-06] MEDS: LISINOPRIL (10MG) 10 MG TABLET PO SCH (08:55)
[2018-05-06] MEDS: NICOTINE PATCH (14MG) 14 MG PATCH.TD24 TD SCH (08:55)
[2018-05-06] MEDS: METFORMIN 500 MG TABLET PO SCH ×2 (08:55→16:13)
--- NOTE | 2018-05-06 14:51 | NUR ---
PT. WITH PC HEARING TODAY AND REPRESENTED BY HEARING REFEREE, ADVOCATE AND THE CHARGE NURSE. THE PATIENT, AFTER TALKING WITH ADVOCATE, HAS DECIDED TO : BE PRESENT AT THE CERTIFICATION REVIEW HEARING. AFTER CONSIDERING ALL THE EVIDENCE PRESENTED, THE HEARING REFEREE FINDS THAT: THERE IS NOT PROBABLE CAUSE TO BELIEVE THAT THE PERSON, A RESULT OF A MENTAL DISORDER IS A DANGER TO SELF, DANGER TO OTHERS OR GRAVELY DISABLED. THE PATIENT MUST BE RELEASED OR REMAIN AT THE FACILITY ON A VOLUNTARY BASIS.
--- NOTE | 2018-05-06 14:57 | NUR ---
DR. RIVERA GAVE A DISCHARGE ORDER AND TO FOLLOW UP WITH PSYCH AND MEDICAL DOCTORS. PT. WITHOUT DISTRESS, DENIES SUICIDAL AND HOMICIDAL. BELONGINGS READY.
--- NOTE | 2018-05-06 15:15 | NUR ---
BANDAR called Gilmar ([phone]), general production worker of the senior care, and confirmed that the pt can be discharged to his senior care today. He stated that as long as she arrives before 10pm that the discharge is acceptable with you.
--- NOTE | 2018-05-06 16:06 | NUR ---
Discharge Note: Pt was discharged to [facility] located at [address] [place] [address]; ([phone]). Pt was transported via taxi which that was scheduled for garbage pick up worker at 7pm. SW spoke to Gilmar Marie ([phone]), box truck owner operator of the senior care, and he stated that the pt is accepted to return to the senior care. Upon discharge, the pt presented in a euthymic mood with an anxious affect. The pt wanted to leave the facility as early as possible because she wanted to make it to the facility early. Pt denied suicidal and homicidal ideation as well as auditory and visual hallucinations. Pt was provided with three substance abuse referrals and smoking cessations referrals that are listed below. Pt was referred to be find psychiatric assistance at [facility] located [address] [place] [address]; and medical assistance at [facility] located at [address] [place] [address]; . Substance Abuse Referrals [facility] [address] [facility] [place] [address] Tel. [facility] [address] [place] Provider Mental Health Treatment Tele-dermatology HIV Services Telemedicine Services [facility] [address] [place] [address] [facility] [address] [place] [address] Smoking Cessation Referrals [facility] [id number]-LUNGUSA [employer] [phone]
[2018-05-06 16:30] VITALS: BP 184/91
--- NOTE | 2018-05-06 17:30 | NUR ---
PT. SIGNED THE DISCHARGE PAPERS AND BELONGINGS READY.
[2018-05-06 18:14] VITALS: BP 148/104
[2018-05-06 18:36] VITALS: BP 155/112
--- NOTE | 2018-05-06 18:57 | NUR ---
CALLED GERMAINE MARTINEZ TO NOTIFIY ABOUT THE BP AND AWAITING FOR THE CALLBACK.
--- NOTE | 2018-05-06 19:45 | NUR ---
PAGED DR. MARTINEZ REGARDING PT'S BP 179/87 mmhg. ORDERED CLONIDINE 0.1MG PO ONETIME. SAID OK TO DISCHARGE THE PT IF THE BP IS BELOW 160. NOTED AND CARRIED OUT. WILL CONTINUE TO MONITOR THE PT'S BP.
[2018-05-06] MEDS ORDERED: CLONIDINE HCL 0.1 MG TABLET PO ONE (20:00)
[2018-05-06] MEDS: LORAZEPAM 0.5 MG TABLET PO PRN (20:26)
[2018-05-06 21:41] VITALS: BP 178/79
[2018-05-06] MEDS: ATORVASTATIN 40 MG TABLET PO SCH (21:41)
[2018-05-06] MEDS ORDERED: OLANZAPINE 2.5 MG TABLET PO SCH (22:00)
--- NOTE | 2018-05-07 00:04 | NUR ---
Pt was discharged to [facility]. Pt accompanied by the WEBSITE ADMIN with her belongings. Pt was transported via taxi. Pt's V/S wnl. Respirations even and unlabored. No acute distress noted. No complain of pain/discomfort. Pt denied suicidal and homicidal ideation. Pt denied auditory and visual hallucinations. Pt discharge in a stable condition. Addendum: 05/07/18 at 0112 by CHRISTIAN FRIAS RN Pt was discharged to [facility] 05/06/2018 1145pm. Pt accompanied by the WEBSITE ADMIN with her belongings. Pt was transported via taxi. Pt's V/S wnl. Respirations even and unlabored. No acute distress noted. No complain of pain/discomfort. Pt denied suicidal and homicidal ideation. Pt denied auditory and visual hallucinations. Pt discharge in a stable condition.
== END 2018-05-06 11:45 | disposition home or self-care (01) | DRG 885 ==
LOC: ER 22:48 → GPS 05-02 00:05
PROVIDERS: ADMIT Psychiatry & Neurology Psychosomatic Medicine; ATTEND Internal Medicine
DX: F25.0 Schizoaffective disorder, bipolar type (principal); E11.65 Type 2 diabetes mellitus with hyperglycemia; E03.9 Hypothyroidism, unspecified; D72.829 Elevated white blood cell count, unspecified; E78.5 Hyperlipidemia, unspecified; F17.210 Nicotine dependence, cigarettes, uncomplicated; I10 Essential (primary) hypertension; J44.9 Chronic obstructive pulmonary disease, unspecified; E86.0 Dehydration; F19.10 Other psychoactive substance abuse, uncomplicated; R79.89 Other specified abnormal findings of blood chemistry
CPT/HCPCS: 36415; 71045-TC; 80048-TC; 80061-TC; 80076-TC; 81000-TC; 82962-TC; 85025-TC; 87081-TC; A4606; G0480; J1815; Z7610

== ENCOUNTER 2018-08-29 19:59 | Inpatient (IN) | payer MEDICARE ==
[~2018-08-29] VITALS: Ht 157.5 cm; Wt 78.0 kg
[~2018-08-29 19:59] MED LIST changes: -ESCI10TA PO; -QUET300T2 PO
--- NOTE | 2018-08-29 20:12 | NUR ---
the patient was placed on 5150 HOLD for DTS.
--- NOTE | 2018-08-29 20:20 | NUR ---
Called nursing supervisor prepress and requested for a sitter due to the pt being on a 5150 hold. Was told there were no sitters available at this time. MD and Charge nurse was notified.
[2018-08-29 20:29] LABS: BASOPHILS # (AUTO) 0.2 /CMM (0.0-0.2); BASOPHILS % (AUTO) 1.4 % (0.0-2.0); EOSINOPHILS % (AUTO) 2.5 % (0.0-6.0); HEMATOCRIT 38 % (33-45); HEMOGLOBIN 12.6 g/dL (11.5-14.8); LYMPHOCYTES # (AUTO) 2.6 /CMM (0.8-4.8); LYMPHOCYTES % (AUTO) 24.7 % (20.0-44.0); MEAN CORPUSCULAR HGB CONC 34 g/dl (31.0-36.0); MEAN CORPUSCULAR VOLUME 89 fL (82-100); MONOCYTES # (AUTO) 0.8 /CMM (0.1-1.30); MONOCYTES % (AUTO) 7.5 % (2.0-12.0); NEUTROPHILS # (AUTO) 6.8 /CMM (1.8-8.9); NEUTROPHILS % (AUTO) 63.9 % (43.0-81.0); PLATELET COUNT (AUTO) 316 /CMM (150-450); WHITE BLOOD COUNT (AUTO) 10.6 K/uL (4.3-11.0)
[2018-08-29] MEDS ORDERED: HALOPERIDOL LACTATE INJ 5 MG/ML VIAL ONE ×2 (20:33→20:38)
[2018-08-29 20:38] LABS: CALCIUM, SERUM 8.6 mg/dL (8.5-10.1); CARBON DIOXIDE 26 mmol/L (21-32); CHLORIDE 104 mmol/L (98-107); CREATININE 1.1 mg/dL (0.6-1.3); GLUCOSE 202 mg/dL (74-106); POTASSIUM 4.3 mmol/L (3.5-5.1); SODIUM SERUM 138 mmol/L (136-145); UREA NITROGEN, BLOOD 26 mg/dL (7-18)
[2018-08-29] MEDS ORDERED: LORAZEPAM INJ 2 MG/ML VIAL ONE ×2 (20:38→20:48)
--- NOTE | 2018-08-29 20:43 | NUR ---
PT GIVEN ATIVAN AND HALDOL IM. PT STIL VERY AGITATED AND RESTLESS, SPITTING AND CURSING AT STAFF.
[2018-08-29 20:44] LABS: ALANINE AMINOTRANSFERASE 28 U/L (12-78); ALBUMIN 3.6 g/dL (3.4-5.0); ALCOHOL, BLOOD < 3 mg/dL (0-0); ALKALINE PHOSPHATASE 176 U/L (46-116); ASPARTATE AMINOTRANSFERASE 16 U/L (15-37); BILIRUBIN,TOTAL 0.2 mg/dL (0.2-1.0); TOTAL PROTEIN, SERUM 7.4 g/dL (6.4-8.2)
[2018-08-29 20:44] LABS: APPEARANCE,URINE Cloudy (CLEAR); BILIRUBIN,URINE Negative (NEGATIVE); BLOOD, URINE Small Ery/uL (NEGATIVE); COLOR,URINE Yellow (YELLOW); KETONES,URINE Negative (NEGATIVE); LEUKOCYTE ESTERASE ,URINE Negative (NEGATIVE); NITRITE, URINE Positive (NEGATIVE); PH,URINE 5.5 (5.0-8.0); PROTEIN,URINE >=300 mg/dl (NEGATIVE); UGLUCOSE Negative (NEGATIVE); UROBILINOGEN,URINE 0.2 EU/dL (0.2)
[2018-08-29 20:56] LABS: BACTERIA,URINE Many /HPF (None Seen); SQUAMOUS EPITHELIAL CELL,UR Few /HPF (None Seen)
[2018-08-29] MEDS ORDERED: HALOPERIDOL LACTATE INJ 5 MG/ML VIAL IM ONE (21:00)
[2018-08-29] MEDS ORDERED: LORAZEPAM INJ 2 MG/ML VIAL IM ONE (21:00)
[2018-08-29] MEDS ORDERED: CEFTRIAXONE 1 G VIAL IM ONE (21:30)
[2018-08-29] MEDS ORDERED: CEFTRIAXONE 1 G VIAL ONE (21:34)
--- NOTE | 2018-08-29 21:42 | NUR ---
admit to [facility] - Dr. Bedolla- psychiatrist
[2018-08-29 22:10] VITALS: BP 155/75
--- NOTE | 2018-08-29 22:10 | NUR ---
GPS-TRUCK ENGINE TECHNICIAN NOTES: PATIENT ADMITTED FROM ER INITIALLY PT. RESIDING AT [facility]. ADMITTED ON 5150 FOR DTS. CAME TO THE UNIT AROUND 2210 VIA GURNEY, BROUGHT IN BY ER STAFF. PATIENT IS ADMITTED DUE TO SUICIDAL IDEATIONS WITH PLAN TO WALK INTO TRAFFIC. PT. STATED I'M SUICIDAL THE PAST FOUR DAYS. PATIENT ADMITS TO PARANOID THOUGHTS. FEELING OF HOPELESSNESS AND HELPLESSNESS. PLACED PATIENT IN BED COMFORTABLY. PATIENT SHOWS NO S/S OF ANY DISTRESS, RESPIRATION EVEN, BREATHING PATTERN NON-LABORED, DENIES PAIN OR DISCOMFORT AT THIS TIME . UPON FACE TO FACE ASSESSMENT PATIENT IS ALERT, ORIENTED X2, DOES NOT INTERACT WHEN ENGAGED, DISHEVELED, UNKEMPT, COOPERATIVE, IRRITABLE. AMBULATES INDEPENDENTLY. DENIES SI OR HI AT THIS TIME. BELONGINGS WERE INVENTORIED AND CHECKED FOR CONTRABAND. PATIENT REFUSED TO SIGN CONSENT. ORDERS WERE OBTAINED FROM DR. JORDAN. JADEN LARA MADE AWARE OF PT'S ADMISSION. SKIN ASSESSMENT DONE. BED LOCKED AND PLACED ON LOWEST POSITION TO MAINTAIN SAFETY. WILL CONTINUE TO MONITOR Q 15 MINS. FOR SAFETY AND BEHAVIOR.
[2018-08-29] MEDS ORDERED: ACETAMINOPHEN 325 MG TABLET PO PRN (23:00)
[2018-08-29] MEDS ORDERED: MAGNESIUM HYDROXIDE 30 ML UDC PO PRN (23:00)
[2018-08-29] MEDS ORDERED: MAG HYDROX/AL HYDROX/SIMETH 30 ML UDC PO PRN (23:00)
[2018-08-30 07:23] LABS: ALANINE AMINOTRANSFERASE 27 U/L (12-78); ALBUMIN 3.4 g/dL (3.4-5.0); ALKALINE PHOSPHATASE 171 U/L (46-116); ASPARTATE AMINOTRANSFERASE 22 U/L (15-37); BILIRUBIN,TOTAL 0.3 mg/dL (0.2-1.0); CALCIUM, SERUM 8.6 mg/dL (8.5-10.1); CARBON DIOXIDE 24 mmol/L (21-32); CHLORIDE 107 mmol/L (98-107); GLUCOSE 195 mg/dL (74-106); POTASSIUM 4.1 mmol/L (3.5-5.1); SODIUM SERUM 141 mmol/L (136-145); UREA NITROGEN, BLOOD 21 mg/dL (7-18)
[2018-08-30 07:44] LABS: CHOLESTEROL 279 mg/dL (<200); HDL CHOLESTEROL 42 mg/dL (40-60); LDL 176 mg/dL (0-99); TRIGLYCERIDES 322 mg/dL (30-150)
[2018-08-30 08:00] VITALS: BP 169/59
[2018-08-30] MEDS: NICOTINE PATCH (21MG) 21 MG PATCH.TD24 TD SCH (08:23)
--- NOTE | 2018-08-30 12:09 | NUR ---
Initial Discharge Note: Pt currently resides at [facility] located at [address] [place] [address]; ([phone]). Per pt, she would like to be discharged to a long term facility. SW will work with the pt and the MD regarding appropriate discharge planning. SW will form a safe and proper discharge.
[2018-08-30] MEDS ORDERED: HYDROCODONE/APAP 5/325MG 1 EACH TABLET PO PRN (12:30)
[2018-08-30] MEDS ORDERED: LORATADINE 10 MG TABLET PO PRN (12:30)
[2018-08-30] MEDS ORDERED: ONDANSETRON 4 MG TAB.RAPDIS PO PRN (12:30)
[2018-08-30] MEDS ORDERED: DEXTROSE 50%-WATER 50 ML DISP.SYRIN IV PRN (12:30)
[2018-08-30] MEDS ORDERED: hydrALAZINE HCL 25 MG TABLET PO PRN (12:30)
[2018-08-30] MEDS: LEVOFLOXACIN (500MG) 500 MG TABLET PO SCH (13:07)
[2018-08-30] MEDS ORDERED: ALBUTEROL FS 2.5 MG/0.5 ML VIAL.NEB NEB PRN (13:30)
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
[2018-08-30 16:00] VITALS: BP 156/93
[2018-08-30] MEDS: DIVALPROEX SODIUM 125 MG TABLET.DR PO SCH (16:20)
[2018-08-30] MEDS: LABETALOL HCL (100MG) 100 MG TABLET PO SCH (16:20)
[2018-08-30] MEDS: glipiZIDE 5 MG TABLET PO SCH (16:20)
[2018-08-30] MEDS: METFORMIN 500 MG TABLET PO SCH (16:21)
[2018-08-30] MEDS: BLOOD SUGAR DIAGNOSTIC 1 EACH STRIP IN SCH ×2 (17:30→21:52)
[2018-08-30 19:46] VITALS: BP 139/70
[2018-08-31] MEDS: BLOOD SUGAR DIAGNOSTIC 1 EACH STRIP IN SCH ×4 (07:41→21:35)
[2018-08-31] MEDS: INSULIN REGULAR, HUMAN 100 UNIT/ML 3 ML VIAL SQ PRN ×5 (07:46→17:11)
[2018-08-31 08:00] VITALS: BP 149/68
[2018-08-31] MEDS: PANTOPRAZOLE 40 MG TABLET.DR PO SCH (08:03)
[2018-08-31] MEDS: LEVOTHYROXINE SODIUM 75 MCG TABLET PO SCH (08:03)
[2018-08-31 08:54] VITALS: BP 149/68
[2018-08-31] MEDS: NICOTINE PATCH (21MG) 21 MG PATCH.TD24 TD SCH (09:00)
[2018-08-31] MEDS: ATORVASTATIN 40 MG TABLET PO SCH (09:35)
[2018-08-31] MEDS: DIVALPROEX SODIUM 125 MG TABLET.DR PO SCH ×3 (09:36→16:54)
[2018-08-31] MEDS: glipiZIDE 5 MG TABLET PO SCH ×2 (09:36→16:54)
[2018-08-31] MEDS: LABETALOL HCL (100MG) 100 MG TABLET PO SCH ×2 (09:36→16:56)
--- NOTE | 2018-08-31 09:41 | NUR ---
WOUND CARE CONSULT: PT PRESENTS WITH STAINING TO FINGERS. PT STATES HAS NICOTINE STAINS. PT IS AMBULATORY AND CONTINENT. WILL SEE PRN.
[2018-08-31] MEDS: METFORMIN 500 MG TABLET PO SCH ×2 (09:58→16:54)
[2018-08-31] MEDS: MULTIVIT W/MINERALS 1 TAB TABLET PO SCH (10:00)
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
[2018-08-31] MEDS: LEVOFLOXACIN (500MG) 500 MG TABLET PO SCH (12:18)
[2018-08-31 15:58] VITALS: BP 146/74
[2018-08-31 20:10] VITALS: BP 139/51
[2018-08-31] MEDS: DIVALPROEX SODIUM 250 MG TABLET.DR PO SCH (21:35)
[2018-08-31] MEDS ORDERED: OLANZAPINE 5 MG/TAB.RAPDIS PO SCH (22:00)
[2018-09-01] MEDS: BLOOD SUGAR DIAGNOSTIC 1 EACH STRIP IN SCH ×4 (07:57→22:10)
[2018-09-01] MEDS: PANTOPRAZOLE 40 MG TABLET.DR PO SCH (07:59)
[2018-09-01 08:00] VITALS: BP 107/52
[2018-09-01] MEDS: LEVOTHYROXINE SODIUM 75 MCG TABLET PO SCH (08:00)
[2018-09-01] MEDS: MULTIVIT W/MINERALS 1 TAB TABLET PO SCH (08:00)
[2018-09-01] MEDS: LABETALOL HCL (100MG) 100 MG TABLET PO SCH ×2 (08:01→16:19)
[2018-09-01] MEDS: NICOTINE PATCH (21MG) 21 MG PATCH.TD24 TD SCH (08:01)
[2018-09-01] MEDS: METFORMIN 500 MG TABLET PO SCH ×2 (08:02→16:19)
[2018-09-01] MEDS: ATORVASTATIN 40 MG TABLET PO SCH (08:02)
[2018-09-01] MEDS: glipiZIDE 5 MG TABLET PO SCH ×2 (08:02→16:20)
[2018-09-01] MEDS: DIVALPROEX SODIUM 125 MG TABLET.DR PO SCH ×2 (09:13→16:19)
--- NOTE | 2018-09-01 10:50 | NUR ---
BANDAR faxed a referral for the pt to [facility] (with attention to Marquise and BRANDON) to the fax number: [phone]. BANDAR will follow up with the referral.
--- NOTE | 2018-09-01 10:51 | NUR ---
BRANDON ([phone]), Accountant Property from [facility], contacted the SW and stated that the pt was approved to their facility. He stated that upon discharge, he is requesting that the SW send a suicidal ideation/homicidal ideation clearance.
[2018-09-01] MEDS: CEPHALEXIN MONOHYDRATE 500 MG CAPSULE PO SCH ×2 (12:07→20:54)
[2018-09-01 16:00] VITALS: BP 120/60
[2018-09-01 20:00] VITALS: BP 139/72
[2018-09-01 20:12] VITALS: BP 139/72
[2018-09-01] MEDS ORDERED: OLANZAPINE 5 MG/TAB.RAPDIS PO SCH (22:00)
[2018-09-01] MEDS: DIVALPROEX SODIUM 250 MG TABLET.DR PO SCH (22:13)
[2018-09-01] MEDS: INSULIN REGULAR, HUMAN 100 UNIT/ML 3 ML VIAL SQ PRN (22:22)
[2018-09-02 08:00] VITALS: BP 145/76
[2018-09-02] MEDS: LEVOTHYROXINE SODIUM 75 MCG TABLET PO SCH (08:08)
[2018-09-02] MEDS: PANTOPRAZOLE 40 MG TABLET.DR PO SCH (08:08)
[2018-09-02] MEDS: BLOOD SUGAR DIAGNOSTIC 1 EACH STRIP IN SCH ×4 (08:09→21:32)
[2018-09-02] MEDS: INSULIN REGULAR, HUMAN 100 UNIT/ML 3 ML VIAL SQ PRN ×3 (08:15→21:56)
[2018-09-02] MEDS: CEPHALEXIN MONOHYDRATE 500 MG CAPSULE PO SCH ×2 (08:19→21:07)
[2018-09-02] MEDS: LABETALOL HCL (100MG) 100 MG TABLET PO SCH ×2 (08:20→17:35)
[2018-09-02] MEDS: glipiZIDE 5 MG TABLET PO SCH ×2 (08:20→17:34)
[2018-09-02] MEDS: METFORMIN 500 MG TABLET PO SCH ×2 (08:20→17:34)
[2018-09-02] MEDS: MULTIVIT W/MINERALS 1 TAB TABLET PO SCH (08:20)
[2018-09-02] MEDS: ATORVASTATIN 40 MG TABLET PO SCH (08:20)
[2018-09-02] MEDS: NICOTINE PATCH (21MG) 21 MG PATCH.TD24 TD SCH (08:21)
[2018-09-02] MEDS: DIVALPROEX SODIUM 125 MG TABLET.DR PO SCH ×2 (08:21→17:35)
[2018-09-02] MEDS: OLANZAPINE 5 MG/TAB.RAPDIS PO SCH ×2 (10:12→21:07)
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
--- NOTE | 2018-09-02 11:53 | NUR ---
BANDAR informed BRANDON ([phone]), Senior Manager Quality Assurance from [facility], that the pt will be discharging on Thursday.
[2018-09-02 16:00] VITALS: BP 122/69
[2018-09-02 20:00] VITALS: BP 157/67
[2018-09-02] MEDS: DIVALPROEX SODIUM 250 MG TABLET.DR PO SCH (21:07)
[2018-09-02] MEDS: ZOLPIDEM TARTRATE 5 MG TABLET PO PRN (21:08)
--- NOTE | 2018-09-02 21:21 | NUR ---
AMBIEN 5 NG TAB PO GIVEN FOR SLEEP.
--- NOTE | 2018-09-02 21:57 | NUR ---
ACCUCHECK 168 MG/DL, 3 UNITS REG. INSULIN ADMINISTERED, HAD CRANBERRY JUICE FOR SNACKS.
[2018-09-03] MEDS: BLOOD SUGAR DIAGNOSTIC 1 EACH STRIP IN SCH ×4 (07:50→20:44)
[2018-09-03 08:00] VITALS: BP_SYST 142; BP_DIAS 58; BP_DIAS 68
[2018-09-03] MEDS: PANTOPRAZOLE 40 MG TABLET.DR PO SCH (08:25)
[2018-09-03] MEDS: LEVOTHYROXINE SODIUM 75 MCG TABLET PO SCH (08:25)
[2018-09-03] MEDS: ATORVASTATIN 40 MG TABLET PO SCH (09:23)
[2018-09-03] MEDS: NICOTINE PATCH (21MG) 21 MG PATCH.TD24 TD SCH (09:23)
[2018-09-03] MEDS: glipiZIDE 5 MG TABLET PO SCH ×2 (09:23→17:38)
[2018-09-03] MEDS: MULTIVIT W/MINERALS 1 TAB TABLET PO SCH (09:23)
[2018-09-03] MEDS: DIVALPROEX SODIUM 125 MG TABLET.DR PO SCH ×2 (09:23→17:38)
[2018-09-03] MEDS: CEPHALEXIN MONOHYDRATE 500 MG CAPSULE PO SCH ×2 (09:23→20:44)
[2018-09-03] MEDS: OLANZAPINE 5 MG/TAB.RAPDIS PO SCH ×2 (09:23→20:45)
[2018-09-03] MEDS: METFORMIN 500 MG TABLET PO SCH ×2 (09:24→17:38)
[2018-09-03] MEDS: LABETALOL HCL (100MG) 100 MG TABLET PO SCH ×2 (09:24→17:39)
[2018-09-03 16:00] VITALS: BP 139/76
[2018-09-03 20:00] VITALS: BP 141/73
--- NOTE | 2018-09-03 20:43 | NUR ---
PATIENT REQUESTING TO CHECK HER SUGR AT THIS TIME.
[2018-09-03] MEDS: ZOLPIDEM TARTRATE 5 MG TABLET PO PRN (20:45)
[2018-09-03] MEDS: INSULIN REGULAR, HUMAN 100 UNIT/ML 3 ML VIAL SQ PRN (20:47)
[2018-09-03] MEDS: DIVALPROEX SODIUM 250 MG TABLET.DR PO SCH (22:47)
[2018-09-04 08:00] VITALS: BP 146/82
[2018-09-04] MEDS: BLOOD SUGAR DIAGNOSTIC 1 EACH STRIP IN SCH ×4 (08:37→21:19)
[2018-09-04] MEDS: METFORMIN 500 MG TABLET PO SCH ×2 (09:00→17:30)
[2018-09-04] MEDS: glipiZIDE 5 MG TABLET PO SCH ×2 (09:00→17:30)
[2018-09-04] MEDS: LABETALOL HCL (100MG) 100 MG TABLET PO SCH ×2 (10:03→17:30)
[2018-09-04] MEDS: LEVOTHYROXINE SODIUM 75 MCG TABLET PO SCH (10:03)
[2018-09-04] MEDS: DIVALPROEX SODIUM 125 MG TABLET.DR PO SCH ×2 (10:03→17:29)
[2018-09-04] MEDS: CEPHALEXIN MONOHYDRATE 500 MG CAPSULE PO SCH ×2 (10:03→21:05)
[2018-09-04] MEDS: PANTOPRAZOLE 40 MG TABLET.DR PO SCH (10:03)
[2018-09-04] MEDS: ATORVASTATIN 40 MG TABLET PO SCH (10:04)
[2018-09-04] MEDS: MULTIVIT W/MINERALS 1 TAB TABLET PO SCH (10:04)
[2018-09-04] MEDS: NICOTINE PATCH (21MG) 21 MG PATCH.TD24 TD SCH (10:04)
[2018-09-04] MEDS: OLANZAPINE 5 MG/TAB.RAPDIS PO SCH ×2 (10:04→21:06)
[2018-09-04] MEDS: INSULIN REGULAR, HUMAN 100 UNIT/ML 3 ML VIAL SQ PRN ×2 (12:22→21:21)
--- NOTE | 2018-09-04 15:30 | NUR ---
a little restless,ambling about floor going back and forth to rm. and then dining room.
[2018-09-04 16:00] VITALS: BP 152/76
[2018-09-04 20:00] VITALS: BP 155/72
[2018-09-04] MEDS: ZOLPIDEM TARTRATE 5 MG TABLET PO PRN (21:06)
[2018-09-04] MEDS: DIVALPROEX SODIUM 250 MG TABLET.DR PO SCH (21:06)
--- NOTE | 2018-09-04 21:22 | NUR ---
ACCUCHECK 177 MG/DL, 3 UNITS REG. INSULIN SC ADMINISTERED, HS SNACKS GIVEN SANDWICH AND PUDDING WITH CRANBERRY JUICE.
[2018-09-05 08:00] VITALS: BP 136/84
[2018-09-05] MEDS: BLOOD SUGAR DIAGNOSTIC 1 EACH STRIP IN SCH ×4 (09:49→21:31)
[2018-09-05] MEDS: MULTIVIT W/MINERALS 1 TAB TABLET PO SCH (10:02)
[2018-09-05] MEDS: PANTOPRAZOLE 40 MG TABLET.DR PO SCH (10:02)
[2018-09-05] MEDS: NICOTINE PATCH (21MG) 21 MG PATCH.TD24 TD SCH (10:02)
[2018-09-05] MEDS: glipiZIDE 5 MG TABLET PO SCH ×2 (10:02→17:29)
[2018-09-05] MEDS: LABETALOL HCL (100MG) 100 MG TABLET PO SCH ×2 (10:03→17:30)
[2018-09-05] MEDS: METFORMIN 500 MG TABLET PO SCH ×2 (10:03→17:29)
[2018-09-05] MEDS: OLANZAPINE 5 MG/TAB.RAPDIS PO SCH ×2 (10:03→21:31)
[2018-09-05] MEDS: ATORVASTATIN 40 MG TABLET PO SCH (10:03)
[2018-09-05] MEDS: LEVOTHYROXINE SODIUM 75 MCG TABLET PO SCH (10:04)
[2018-09-05] MEDS: CEPHALEXIN MONOHYDRATE 500 MG CAPSULE PO SCH ×2 (10:04→20:35)
[2018-09-05] MEDS: DIVALPROEX SODIUM 125 MG TABLET.DR PO SCH ×2 (10:04→17:29)
[2018-09-05] MEDS: INSULIN REGULAR, HUMAN 100 UNIT/ML 3 ML VIAL SQ PRN ×2 (13:23→21:36)
[2018-09-05 16:00] VITALS: BP 136/59
[2018-09-05 20:09] VITALS: BP 147/70
[2018-09-05] MEDS: ZOLPIDEM TARTRATE 5 MG TABLET PO PRN (21:32)
[2018-09-05] MEDS: DIVALPROEX SODIUM 250 MG TABLET.DR PO SCH (22:15)
[2018-09-06] VITALS (7 sets, daily range): BP systolic 125–190; BP diastolic 70–90
[2018-09-06] MEDS: BLOOD SUGAR DIAGNOSTIC 1 EACH STRIP IN SCH ×4 (07:53→21:32)
[2018-09-06] MEDS: NICOTINE PATCH (21MG) 21 MG PATCH.TD24 TD SCH (08:40)
[2018-09-06] MEDS: OLANZAPINE 5 MG/TAB.RAPDIS PO SCH ×2 (08:40→21:33)
[2018-09-06] MEDS: DIVALPROEX SODIUM 125 MG TABLET.DR PO SCH ×2 (08:40→16:29)
[2018-09-06] MEDS: ATORVASTATIN 40 MG TABLET PO SCH (08:41)
[2018-09-06] MEDS: glipiZIDE 5 MG TABLET PO SCH ×2 (08:41→16:37)
[2018-09-06] MEDS: PANTOPRAZOLE 40 MG TABLET.DR PO SCH (08:41)
[2018-09-06] MEDS: METFORMIN 500 MG TABLET PO SCH ×2 (08:41→16:33)
[2018-09-06] MEDS: LEVOTHYROXINE SODIUM 75 MCG TABLET PO SCH (08:41)
[2018-09-06] MEDS: MULTIVIT W/MINERALS 1 TAB TABLET PO SCH (08:46)
[2018-09-06] MEDS: LABETALOL HCL (100MG) 100 MG TABLET PO SCH ×2 (09:30→15:32)
--- NOTE | 2018-09-06 11:13 | NUR ---
RN-CO: Patient is calm and cooperative to care. Denied auditory and visual hallucination. Denied suicidal and homicidal ideation. Denied pain and discomforts. No acute distress noted. Visible in the unit. Dr Tineo ordered to discharge patient and discontinued hold noted and carried out. All discharge papers were explained to the patient and she verbalized understanding. Valuables will be given back to her.
--- NOTE | 2018-09-06 11:44 | NUR ---
BANDAR conducted a substance abuse intervention with the pt due to her past history of drug use.
--- NOTE | 2018-09-06 11:51 | NUR ---
BANDAR faxed a clearance for the pt to [facility] (with attention to Marquise and BRANDON) to the fax number: [phone].
--- NOTE | 2018-09-06 11:52 | NUR ---
RN-CO: Report called to Helga FOWLER.
[2018-09-06] MEDS: INSULIN REGULAR, HUMAN 100 UNIT/ML 3 ML VIAL SQ PRN ×3 (12:06→21:54)
--- NOTE | 2018-09-06 13:21 | NUR ---
RN-CO: HYDRAZALINE 25 MG PO GIVEN FOR BP OF 173/100.
--- NOTE | 2018-09-06 14:50 | NUR ---
RN-CO: BP RECHECKED 140/90.
--- NOTE | 2018-09-06 15:32 | NUR ---
RN-CO: LOBETALOL 200 MG GIVEN FOR BP OF 150/90 AND PER PATIENT REQUEST.
--- NOTE | 2018-09-06 15:41 | NUR ---
Discharge Note: Pt was discharged to [facility] located at [address] [place] [address]; ([phone]). Pt was transported via [facility] (Trip #[id number]) at 1:30 PM. Upon discharge, the pt appeared to be in a euthymic mood and presented with an anxious affect. She stated that she was excited to be going to the facility because she wanted to be able to have more freedom. Pt denied both suicidal and homicidal ideation as well as auditory and visual hallucinations. Pt will be under the care of her psychiatrist, Dr. Tineo, located at [address] [address], [place] [address]; and dextrine mixer, Dr. Richmond, located at [address] [place] [address]; . Pt will continue to address her substance use with her psychiatrist and dextrine mixer. Addendum: 09/07/18 at 1224 by RUMA PORTILLO Pt was discharged to [facility] ([facility] located at [address] [place] [address]; ([phone]). Pt was transported via [facility] (T[facility] #[id number]) at 10AM on 09/07/18. Upon discharge, the pt appeared to be in a euthymic mood and presented with an anxious affect. She stated that she was excited to be going to the facility because she wanted to be able to have more freedom. Pt denied both suicidal and homicidal ideation as well as auditory and visual hallucinations. Pt will be under the care of her psychiatrist, Dr. Tineo, located at [address] [address], [place] [address]; and dextrine mixer, Dr. Richmodn, located at [address] [place] [address]; . Pt will continue to address her substance use with her psychiatrist and dextrine mixer.
--- NOTE | 2018-09-06 15:59 | NUR ---
RN-CO: Called Ambulance again [phone], and informed them that patient is ready for discharge.
--- NOTE | 2018-09-06 16:20 | NUR ---
RN-CO: Patient denied pain and discomforts.
--- NOTE | 2018-09-06 16:30 | NUR ---
RN-CO: BP IS 144/73.
--- NOTE | 2018-09-06 18:37 | NUR ---
RN-CO: 144/86, DENIED PAIN AND DISCOMFORTS.
--- NOTE | 2018-09-06 19:07 | NUR ---
RN-CO: AMBULANCE WILL BE HERE TO P/U AT 1930. PER ANA PAULA.
[2018-09-06] MEDS ORDERED: LORAZEPAM 1 MG TABLET PO PRN (20:30)
--- NOTE | 2018-09-06 20:30 | NUR ---
GPS RN NOTED: HOLD DISCHARGE DUE TO HIGH BLOOD PRESSURE 190/ 80 , P 90 , AND PT. WAS VERY ANXIOUS , NOTIFIED PSYCHIATRIST DR. RIVERA , AND NOTIFIED CHICLE GRINDER FEEDER MEDICAL BEATRICE ZAIDI , RECEVIED NEW ORDERS AND CARRIED OUT. DR. RIVERA GAVE TELEPHONE ORDERS ATIVAN 1 MG PO PRN Q8H, AND DYAN BARRON GAVE TELEPHONE ORDERS METROPLO 50 MG PO DAILY. NEW ORDERS NOTED AND CARRIED OUT. WILL CONTINUITY WITH CARE.
--- NOTE | 2018-09-06 20:37 | NUR ---
GPS RN NOTES PT. C/O ANXIETY ATIVAN 1 MG PO PRN GIVEN PER PT. REQUEST, WILL CONTINUE TO MONITOR.
[2018-09-06] MEDS: DIVALPROEX SODIUM 250 MG TABLET.DR PO SCH (21:32)
[2018-09-06] MEDS: METOPROLOL SUCCINATE 50 MG TAB.SR.24H PO SCH (21:32)
[2018-09-06] MEDS: ZOLPIDEM TARTRATE 5 MG TABLET PO PRN (22:19)
[2018-09-07] MEDS: BLOOD SUGAR DIAGNOSTIC 1 EACH STRIP IN SCH (07:58)
[2018-09-07 08:00] VITALS: BP 137/62
[2018-09-07] MEDS: INSULIN REGULAR, HUMAN 100 UNIT/ML 3 ML VIAL SQ PRN (08:00)
[2018-09-07] MEDS: METFORMIN 500 MG TABLET PO SCH (08:04)
[2018-09-07] MEDS: OLANZAPINE 5 MG/TAB.RAPDIS PO SCH (08:04)
[2018-09-07] MEDS: glipiZIDE 5 MG TABLET PO SCH (08:04)
[2018-09-07] MEDS: MULTIVIT W/MINERALS 1 TAB TABLET PO SCH (08:04)
[2018-09-07] MEDS: LEVOTHYROXINE SODIUM 75 MCG TABLET PO SCH (08:04)
[2018-09-07] MEDS: METOPROLOL SUCCINATE 50 MG TAB.SR.24H PO SCH (08:04)
[2018-09-07] MEDS: NICOTINE PATCH (21MG) 21 MG PATCH.TD24 TD SCH (08:04)
[2018-09-07] MEDS: PANTOPRAZOLE 40 MG TABLET.DR PO SCH (08:04)
[2018-09-07 08:05] VITALS: BP 137/62
[2018-09-07] MEDS: ATORVASTATIN 40 MG TABLET PO SCH (08:05)
[2018-09-07] MEDS: LABETALOL HCL (100MG) 100 MG TABLET PO SCH (08:05)
[2018-09-07] MEDS: DIVALPROEX SODIUM 125 MG TABLET.DR PO SCH (08:05)
--- NOTE | 2018-09-07 10:31 | NUR ---
GPS RN NOTE: PT DISCHARGE TO [facility] AT [address] [place], [place] VIA AMBULANCE, T.O. ORDER FROM DR RIVERA DC HOLD DC PT TO SNF , PT IN STABLE CONDITION NO S/S DISTRESS NOTED , COMPLIANT WITH MEDICATIONS ,DENIES SI/HI. EXIT CARE DONE PRINTED, SIGN GIVEN TO PT, MEDICATIONS RECON DONE , REPORT GIVEN TO RN IN SNF. SKIN INTACT.
--- NOTE | 2018-09-21 13:04 | NUR ---
15 Day Substance Abuse Follow Up: Pt is exempt from the substance abuse follow up to her discharge to a half-way facility called [facility].
== END 2018-09-07 10:37 | DRG 885 ==
LOC: ER 20:00 → GPS 21:34
PROVIDERS: ADMIT Psychiatry & Neurology Psychosomatic Medicine; ATTEND Psychiatry & Neurology Psychosomatic Medicine
DX: F25.0 Schizoaffective disorder, bipolar type (principal); E11.65 Type 2 diabetes mellitus with hyperglycemia; N39.0 Urinary tract infection, site not specified; E44.1 Mild protein-calorie malnutrition; F29 Unspecified psychosis not due to a substance or known physiological condition; I10 Essential (primary) hypertension; E03.9 Hypothyroidism, unspecified; F03.90 Unspecified dementia, unspecified severity, without behavioral disturbance, psychotic disturbance, mood disturbance, and anxiety; E78.5 Hyperlipidemia, unspecified; E66.9 Obesity, unspecified; Z68.31 Body mass index [BMI] 31.0-31.9, adult; F19.90 Other psychoactive substance use, unspecified, uncomplicated; J44.9 Chronic obstructive pulmonary disease, unspecified
CPT/HCPCS: 36415; 80048-TC; 80053-TC; 80061-TC; 80076-TC; 80164-TC; 80305; 81000-TC; 82962-TC; 85025-TC; 87081-TC; 87086-TC; 87186-TC; G0480; J0696; J1630; J1815; J2060